=== PATIENT | female | born 1990 | race Two or more races ===

== ENCOUNTER 2017-03-31 22:12 | Emergency (ER) | payer SELFPAY | END 2017-04-01 01:05 | disposition home or self-care (01) | LOC: D.ER 22:12 | DX: T17.228A Food in pharynx causing other injury, initial encounter (principal); X58.XXXA Exposure to other specified factors, initial encounter; Y93.89 Activity, other specified; Y92.029 Unspecified place in mobile home as the place of occurrence of the external cause ==